=== PATIENT | male | born 1995 | race Caucasian/White ===

== ENCOUNTER 2017-09-13 20:08 | Emergency (ER) | payer OTHER ==
[~2017-09-13] VITALS: Ht 165.1 cm; Wt 108.9 kg
[2017-09-13 20:20] VITALS: Ht 165.1 cm; Wt 108.9 kg
[2017-09-13 21:20] LABS: BASOPHIL % 0.4 % (0-2); PLATELET COUNT 259 x10^3mcL (130-400); RED CELL DISTRIBUTION WIDTH 12.7 % (11.5-14.5)
[2017-09-13 21:37] LABS: CHLORIDE SERUM 103 mmol/L (98-107); GFR1 > 60 mL/min; GLUCOSE SERUM 90 mg/dL (74-106); SODIUM SERUM 140 mmol/L (136-145)
[2017-09-13 21:53] LABS: ALBUMIN 3.8 g/dL (3.4-5.0); ALKALINE PHOSPHATASE 58 U/L (46-116); ALT/SGPT 26 U/L (16-63); AST/SGOT 18 U/L (15-37); BILIRUBIN TOTAL 0.34 mg/dL (0.20-1.00); CHOLESTEROL 136 mg/dL (<200); TOTAL PROTEIN, SERUM 7.5 g/dL (6.4-8.2)
[2017-09-13 23:28] VITALS: BP 124/75
== END 2017-09-13 23:28 | disposition left against medical advice (07) ==
LOC: ED 20:08 → DU 22:42 → ED 22:42
PROVIDERS: Specialist
DX: R55 Syncope and collapse (principal)
CPT/HCPCS: 83880; 84439; G0480; Q0092

== ENCOUNTER 2018-05-06 18:32 | Emergency (ER) | payer OTHER ==
[~2018-05-06] VITALS: Ht 167.6 cm; Wt 112.9 kg
[2018-05-06 18:38] VITALS: Ht 167.6 cm; Wt 112.9 kg
[2018-05-06 20:36] VITALS: BP 146/76
== END 2018-05-06 20:36 | disposition home or self-care (01) ==
LOC: ED 18:32
DX: S30.811A Abrasion of abdominal wall, initial encounter (principal); W26.8XXA Contact with other sharp object(s), not elsewhere classified, initial encounter; Y93.89 Activity, other specified; Y92.89 Other specified places as the place of occurrence of the external cause; Y99.8 Other external cause status

== ENCOUNTER 2018-09-13 20:34 | Emergency (ER) | payer OTHER ==
[~2018-09-13] VITALS: Ht 167.6 cm; Wt 117.5 kg
[2018-09-13 20:41] VITALS: Ht 167.6 cm; Wt 117.5 kg
[2018-09-14 00:46] VITALS: BP 129/85
== END 2018-09-14 00:46 | disposition home or self-care (01) ==
LOC: ED 20:34
DX: R06.02 Shortness of breath (principal)
CPT/HCPCS: 87804; J1885; Q0092

== ENCOUNTER 2019-12-20 14:11 | Emergency (ER) | payer OTHER ==
[~2019-12-20] VITALS: Ht 165.1 cm; Wt 110.2 kg
[2019-12-20 14:19] VITALS: Ht 165.1 cm; Wt 110.2 kg
[2019-12-20 14:46] LABS: BASOPHIL % 0.5 % (0-2); PLATELET COUNT 256 x10^3mcL (130-400); RED CELL DISTRIBUTION WIDTH 13.2 % (11.5-14.5)
[2019-12-20 15:14] LABS: CALCIUM 8.8 mg/dL (8.5-10.1); CARBON DIOXIDE 27.2 mmol/L (21-32); CHLORIDE SERUM 103 mmol/L (98-107); GFR1 > 60 mL/min; GLUCOSE SERUM 88 mg/dL (74-106); POTASSIUM SERUM 3.8 mmol/L (3.5-5.1); SODIUM SERUM 141 mmol/L (136-145)
[2019-12-20 15:19] LABS: ALBUMIN 4.2 g/dL (3.4-5.0); ALKALINE PHOSPHATASE 62 U/L (46-116); ALT/SGPT 32 U/L (16-63); AST/SGOT 25 U/L (15-37); BILIRUBIN TOTAL 0.4 mg/dL (0.20-1.00); TOTAL PROTEIN, SERUM 7.6 g/dL (6.4-8.2)
[2019-12-20 15:31] LABS: CALCIUM 9.1 mg/dL (8.5-10.1); MAGNESIUM 2.2 mg/dL (1.8-2.4)
[2019-12-20 16:00] LABS: microscopic required? NO
[2019-12-20 16:13] LABS: UA SPECIFIC GRAVITY >=1.030 (1.005-1.035); urine erythrocyte NEGATIVE (NEGATIVE)
[2019-12-20 16:23] VITALS: BP 110/59
[2019-12-20 16:24] LABS: AMPHETAMINE QUAL UR NONE DETECTED (See below)
== END 2019-12-20 16:23 | disposition home or self-care (01) ==
LOC: ED 14:11
PROVIDERS: Emergency Medicine
DX: R56.9 Unspecified convulsions (principal); M54.5 Low back pain; R00.1 Bradycardia, unspecified
CPT/HCPCS: 82962; G0480; Q0092

== ENCOUNTER 2019-12-30 18:04 | Emergency (ER) | payer OTHER ==
[~2019-12-30] VITALS: Ht 170.2 cm; Wt 110.2 kg
[2019-12-30 18:20] VITALS: Ht 170.2 cm; Wt 110.2 kg
[2019-12-30 21:58] VITALS: BP 130/74
== END 2019-12-30 21:57 | disposition home or self-care (01) ==
LOC: ED 18:04
DX: R07.89 Other chest pain (principal); M54.6 Pain in thoracic spine
CPT/HCPCS: Q0092